=== PATIENT | female | born 1985 | race Caucasian/White ===

== ENCOUNTER 2025-05-26 15:56 | Emergency (ER) | payer OTHER ==
[~2025-05-26] VITALS: Ht 170.2 cm; Wt 64.4 kg
[2025-05-26 16:02] VITALS: TEMP 98
[2025-05-26] MEDS ORDERED: LIDOCAINE 5% (PATCH) 1 EA PATCH TP ONE (16:45)
[2025-05-26] MEDS ORDERED: KETOROLAC TROMETHAMINE 15 MG/ML VIAL ONE (16:45)
[2025-05-26 17:32] LABS: PREGNANCY TEST URINE QUAL NEGATIVE (NEGATIVE)
[2025-05-26] MEDS: KETOROLAC TROMETHAMINE 15 MG/ML VIAL IM ONE (17:46)
[2025-05-26] MEDS: LIDOCAINE 5% (PATCH) 1 EA PATCH TP SCH (17:46)
[2025-05-26] MEDS ORDERED: LIDO30AD10 TP (17:54)
[2025-05-26] MEDS ORDERED: IBUP-1953 PO (17:54)
[2025-05-26 18:01] VITALS: BP 106/66; O2SAT 99
== END 2025-05-26 18:02 | disposition home or self-care (01) ==
LOC: ER 16:14
DX: S13.4XXA Sprain of ligaments of cervical spine, initial encounter (principal); Z79.1 Long term (current) use of non-steroidal anti-inflammatories (NSAID); V89.2XXA Person injured in unspecified motor-vehicle accident, traffic, initial encounter; Y93.89 Activity, other specified; Y92.410 Unspecified street and highway as the place of occurrence of the external cause; Y99.9 Unspecified external cause status
CPT/HCPCS: 99283; 96372; 84703; J1885